=== PATIENT | female | born 1950 | race Two or more races ===

== ENCOUNTER 2019-08-10 09:44 | Outpatient (CLI) | payer OTHER | END 2019-08-10 10:20 | disposition home or self-care (01) | LOC: NUCLEAR 09:44 | DX: C54.1 Malignant neoplasm of endometrium (principal); R60.0 Localized edema; R03.0 Elevated blood-pressure reading, without diagnosis of hypertension; E11.9 Type 2 diabetes mellitus without complications; E78.2 Mixed hyperlipidemia; I87.2 Venous insufficiency (chronic) (peripheral) ==

== ENCOUNTER 2019-08-11 07:46 | Outpatient (CLI) | payer OTHER | END 2019-08-11 08:15 | disposition home or self-care (01) | LOC: NUCLEAR 07:46 | DX: R60.0 Localized edema (principal); C54.1 Malignant neoplasm of endometrium; R03.0 Elevated blood-pressure reading, without diagnosis of hypertension; E11.9 Type 2 diabetes mellitus without complications; E78.2 Mixed hyperlipidemia ==

== ENCOUNTER 2021-03-07 08:26 | Outpatient (CLI) | payer OTHER | END 2021-03-07 08:29 | disposition home or self-care (01) | LOC: NUCLEAR 08:26 | PROVIDERS: ATTEND Internal Medicine Cardiovascular Disease | DX: R06.00 Dyspnea, unspecified (principal); C54.1 Malignant neoplasm of endometrium ==